=== PATIENT | female | born 1990 | race American Indian/Alaskan Native ===

== ENCOUNTER 2017-06-26 18:03 | Emergency (ER) | payer OTHER ==
[2017-06-26 18:55] VITALS: BP 85/53
[2017-06-26] MEDS ORDERED: NACL 0.9% 1000 ML 1,000 ML IV ONE (18:55)
[2017-06-26 19:55] LABS: Alanine Aminotransferase 8 units/L (7-56); BUN/Creatinine Ratio 17; Blood Urea Nitrogen 15 mg/dL (7-17); Calcium 8.7 mg/dL (8.4-10.2)
[2017-06-26 19:56] LABS: Hemolysis Index 3; Lipase 25 units/L (13-60)
[2017-06-26 20:09] LABS: Hematocrit 42.7 % (30.3-42.9); Hemoglobin 14.1 gm/dl (10.1-14.3); Mean Corpuscular HGB Conc 33 % (30-34); Mean Corpuscular Hemoglobin 29 pg (28-32); Mean Corpuscular Volume 88 fl (79-97); Platelet Count 277 K/mm3 (140-440); Red Blood Count 4.86 M/mm3 (3.65-5.03); Red Cell Distribution Width 13.5 % (13.2-15.2)
[2017-06-26 20:11] LABS: INR 1.05 (0.87-1.13)
[2017-06-26 20:12] LABS: Partial Thromboplastin Time 25.3 Sec. (24.2-36.6)
[2017-06-26 21:20] LABS: Band Neutrophils # (Manual) 0.1 K/mm3; Basophils % (Manual) 0 % (0.0-1.8); Total Cells Counted 100
[2017-06-26 21:21] LABS: Platelet Estimate Consistent w Auto
== END 2017-06-26 23:30 | disposition left against medical advice (07) ==
LOC: ED 18:03
DX: R11.2 Nausea with vomiting, unspecified (principal); Z53.21 Procedure and treatment not carried out due to patient leaving prior to being seen by health care provider
CPT/HCPCS: 36415; 80053; 83690; 85007; 85025; 85610; 85730; 86850; 86900; 86901; 93005; 93010